=== PATIENT | female | born 2000 | race Two or more races ===

== ENCOUNTER 2024-06-25 14:17 | Outpatient (AMB) | payer OTHER, SELFPAY ==
--- NOTE | 2024-06-25 14:26 | HO.NEPHOV_ITS ---
Vital Signs 06/25/24 14:29 Height 4 ft 11 in Weight 128 lb 2 oz BMI 25.9 BP 90/52 L Blood Pressure Location Rt brachial Position Sitting Pulse 81 Pulse Source Pulse Oximeter Pulse Oximetry (%) 99 Oxygen Delivery Method Room Air Intake Visit Reasons: Self Referral/ Kidney Cyst-LVM Territory Development Manager Required: No Accompanied by: Mother Allergies banana Allergy (Verified 06/25/24 14:29) Unknown celery Allergy (Verified 06/25/24 14:29) Unknown kiwi Allergy (Verified 06/25/24 14:29) Unknown latex Allergy (Verified 06/25/24 14:29) Unknown seafood Allergy (Verified 06/25/24 14:29) Unknown shellfish derived Allergy (Verified 06/25/24 14:29) Unknown wheat Allergy (Verified 06/25/24 14:29) Unknown HPI Comments Details: I had the pleasure of seeing Rj who is a 23 year old patient for renal cyst which was detected incidentally on a CT scan done in [facility] on 04/19/2023 when she presented with left quadrant pain. She has H/O learning disbility as well as vasovagal syndrome. She was seen in [facility] and had undergone CT scan as well as VEEG. She is off Keppra and has a follow up with [facility] Neurology. She is not known to have any electrolyte abnormalities. She has been having a lot of stressors at school and has some documented learning disability. She has no flank pain, H/O renal stone, dysuria, hematuria, hypertension, weight loss, night sweats or renal dysfunction. Last CT scan showed a 1.3X1.3X1.2 cm anechoic focus in the lower pole of right kidney with a single avascular thin internal septation (Bosniak 2 ). [facility] Medical History (Updated 06/25/24 @ 15:05 by Bernard Rangel MD) Nonepileptic episode IBS (irritable bowel syndrome) Chronic migraine without aura Family History (Updated 06/25/24 @ 14:28 by Jayla Swift MA) Mother Hypotension Father High cholesterol Paternal Grandmother Diabetes Maternal Grandmother Migraine Social History (Updated 06/25/24 @ 14:29 by Jayla Swift MA) Alcohol intake: never Patient Tobacco Use Status: Never used Tobacco Review of Systems Const All systems reviewed & are unremarkable except as noted in HPI and below Physical Exam Vital Signs: Last Vital Signs Pulse 81 06/25/24 14:29 BP 90/52 L 06/25/24 14:29 Pulse Ox 99 06/25/24 14:29 Oxygen Delivery Method Room Air 06/25/24 14:29 BMI result Body Mass Index 25.9 Const General: comfortable and no acute distress Orientation/consciousness: patient oriented x3 HEENT Head: Yes normocephalic Mouth: Normal oral and palatal mucosa present Eyes EOM: EOMs intact bilaterally Neck Neck: Yes supple Resp Auscultation: clear to auscultation bilaterally Cardio Jugular venous distension: no JVD Rate: regular rate GI Palpation (GI): Soft to palpation Auscultation: normal bowel sounds General: Yes no CVA tenderness Back/Spine/Pelvis Back: no CVA tenderness Skin General skin exam: no rashes or lesions noted Neuro General: patient oriented x3 and moves all extremities Extrem General: Yes no pedal edema Results Reviewed Nephrology Results: No Data to Display Assessment & Plan Assessment & Plan (1) Renal cyst: Code(s): N28.1 - Cyst of kidney, acquired Category: Medical Plan Renal cyst which was detected incidentally on a CT scan done in [facility] on 04/19/2023 when she presented with left quadrant pain. She is not known to have any electrolyte abnormalities. She has no flank pain, H/O renal stone, dysuria, hematuria, hypertension, weight loss, night sweats or renal dysfunction. Last CT scan showed a 1.3X1.3X1.2 cm anechoic focus in the lower pole of right kidney with a single avascular thin internal septation (Bosniak 2 ). Her BP is normal. She has no family H/O renal cysts, ESRD or renal transplantation. I discussed the findings with her and her mother. I encouraged her to have a follow up imaging with time which I shall arrange through my office after next visit in a year time. All questions answered Coding Level of Care Code New Pt Level 4 (25483) Diagnoses Renal cyst N28.1
[2024-06-25 14:29] VITALS: BP 90/52; PULSE 81; O2SAT 99; BMI 25.9
== END 2024-06-25 15:08 | disposition home or self-care (01) ==
LOC: HO.HKA 14:17
PROVIDERS: PCP Pediatrics; Visit Provider Internal Medicine Nephrology
DX: N28.1 Cyst of kidney, acquired (principal)
CPT/HCPCS: 99204

== ENCOUNTER → 2024-06-25 14:17 | Outpatient (BNVA) | payer OTHER, SELFPAY | PROVIDERS: PCP Pediatrics; Visit Provider Internal Medicine Nephrology ==

== ENCOUNTER 2024-12-16 11:37 | Outpatient (REF) | payer OTHER, SELFPAY ==
--- NOTE | ~2024-12-16 | US_ITS ---
EXAMINATION: ULTRASOUND RENAL, BILATERALLY. CLINICAL INFORMATION: Cyst of the kidney, acquired. Hematuria. COMPARISON: No priors. TECHNIQUE: Real-time ultrasound kidneys using grayscale and color Doppler technique. FINDINGS: Right kidney: 10 x 3 x 5 cm. Volume: 95 cc. Normal echotexture. Renal cortical thickness is normal. No hydronephrosis. There is a 1.8 cm probably septated anechoic lesion at the corticomedullary junction of the lower pole without flow on color Doppler interrogation. Left kidney: 12 x 6 x 5 cm. Volume: 190 cc. Normal echotexture. Renal cortical thickness is normal. No hydronephrosis. No solid or cystic lesion. US/US renal BI IMPRESSION: No hydronephrosis. 1.8 cm complex cyst, right kidney. Electronically signed by: Edmundo Connell MD 12/17/2024 11:38 AM EDT
--- OUTSIDE RECORDS SUMMARY | 2024-12-16 14:10 | XMS_ITS | Encounter Summary ---
Author Organization [facility] Address [address] [place] [address] Phone Care Team Providers Care Stemhole Borer Name Role Phone Unavailable Primary Care Provider Unavailabl e Encounter Details Date Type Department Care Team (Late st Contact Info) Description 04/12/2017 Conversion Encounter [facility] - [address] [id number] Social History Tobacco Use Types Packs/Day Years Used Date Smoking Tobacco: Never Comments:Never smoker Comments Unknown Sex and Gender Information Value Date Recorded Sex Assigned at Not on file Legal Sex Female 5:15 PM EDT Gender Identity Not on file Sexual Orientation Not on file documented as of this encounter Plan of Treatment Not on file documented as of this encounter Visit Diagnoses Not on filedocumented in this encounter
--- OUTSIDE RECORDS SUMMARY | 2024-12-16 14:10 | XMS_ITS | Encounter Summary ---
Author Organization [facility] Address [address] [place] [address] Phone Care Team Providers Care Designer Name Role Phone Unavailable Primary Care Provider Unavailabl e Encounter Details Date Type Department Care Team (Late st Contact Info) Description 11/14/2016 Documentation EM Family Medicine [facility] [place] [address] Family Medicine, Physician [address] [place] [phone] Social History Tobacco Use Types Packs/Day Years Used Date Smoking Tobacco: Never Assessed Comments Unknown Sex and Gender Information Value Date Recorded Sex Assigned at Not on file Legal Sex Female 5:15 PM EDT Gender Identity Not on file Sexual Orientation Not on file documented as of this encounter Plan of Treatment Not on file documented as of this encounter Visit Diagnoses Not on filedocumented in this encounter
--- OUTSIDE RECORDS SUMMARY | 2024-12-16 14:10 | XMS_ITS | Encounter Summary ---
Author Organization [facility] Address [address] [place] [address] Phone Care Team Providers Care Vacuum Tester Cans Name Role Phone Unavailable Primary Care Provider Unavailabl e Encounter Details Date Type Department Care Team (Late st Contact Info) Description 09/15/2011 Documentation EM Family Medicine Replaced by [facility] [place] [address] Family Medicine, Physician Replaced by [facility] [place], [place] [phone] Social History Tobacco Use Types Packs/Day Years [...]
--- OUTSIDE RECORDS SUMMARY | 2024-12-16 14:10 | XMS_ITS | Encounter Summary ---
Author Organization [facility] Address [address] [place] [address] Phone Care Team Providers Care Lead Former Name Role Phone Unavailable Primary Care Provider Unavailabl e Encounter Details Date Type Department Care Team (Late st Contact Info) Description 05/04/2010 Documentation [facility] Family Medicine [facility] [address] Family Medicine, Physician [facility] [place], [place] [phone] Social History Tobacco Use Types Packs/Day Years [...]
--- OUTSIDE RECORDS SUMMARY | 2024-12-16 14:10 | XMS_ITS | Encounter Summary ---
Author Organization [facility] Address [address] [place] [address] Phone Care Team Providers Care Level Glass Vial Filler Name Role Phone Unavailable Primary Care Provider Unavailabl e Encounter Details Date Type Department Care Team (Late st Contact Info) Description 03/20/2017 Documentation EM Family Medicine [facility] [place] [address] Family Medicine, Physician [facility] [place] [address] Social History Tobacco Use Types Packs/Day Years [...]
--- OUTSIDE RECORDS SUMMARY | 2024-12-16 14:10 | XMS_ITS | Encounter Summary ---
Author Organization [facility] Address [address] [place] [address] Phone Care Team Providers Care Android Platform Developer Name Role Phone Unavailable Primary Care Provider Unavailabl e Encounter Details Date Type Department Care Team (Late st Contact Info) Description 01/14/2014 Documentation EM Family Medicine [facility] [place] [address] Family Medicine, Physician [address] [place] [phone] Social History Tobacco Use Types Packs/Day Years [...]
--- OUTSIDE RECORDS SUMMARY | 2024-12-16 14:10 | XMS_ITS | Clinical Summary ---
Author Organization [facility] Address [address] [place] [phone] Phone Care Team Providers Care Sample Body Builder Name Role Phone Unavailable Primary Care Provider Unavailabl e Allergies Active Allergy Reactions Criticality Noted Date Comments Banana Celery Oil Environmental Cat dander, dog dander, mites Food kiwi Latex Milk Protein 06/08/2018 Shellfish-Derived Products 7 Spearmint Oil Wheat Medications No known medications Active Problems Problem Noted Date Diagnosed Date Need for case management follow-up 05/19/2020 Overview (05/19/2020): STD screening not done due to national shortage Anxiety disorder 01/26/2020 Food allergy 08/12/2018 Overview (02/19/2019): Followed by Dr. 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 Seen by Dr. English, Pedi Neuro, [facility] (2018) - MRI normal. Rec: Naproxen and Compazine as needed. 2019 - she found that salt and lemon 3 times will help abort the headache and the symptom of vision loss. Assessment & Plan (09/09/2017 9:30 PM EST): You have a long history of migraine SNYDER with and without aura. You have had a neg head MRI have been followed by Neuro at [facility]. We discussed your symptoms at length and you will continue to track what is going on and follow up with Dr Holloway in a few weeks. Handout given and discussed Resolved Problems Problem Noted Date Diagnosed Date Resolved Date Allergic rhinitis 08/12/2018 05/19/2020 Overview (08/12/2018): Followed by manager transportation planning, Dr. Anju Sexton 09/09/2017 12/18/2017 Immunizations Immunization Administration Dates Next Due DTaP 5 02/02/2006, 3,06/24/2002,04/01,01/29/2002 H1N1 09/20/2009,07/08/2009 HPV Vaccine 9 Valent 09/25/2018,05/22/2018,03/19 Hep A, ped/adol 07/12/2015,10/19/2014 Hep B, ped/adol 10/08/2002,06/24/2002,2001 Hib (PRP-T) 03/31/2003, 2,04/01/2002,01/29 IPV 02/02/2006, 3,04/01/2002,01/29 Influenza, injectable, quadrivalent 06/08/2016,1 09/11/2014 Influenza, injectable, quadr ivalent, preservative free 05/19/2020,05/28/2019,05/22/2018,07/03 Influenza, injectable, trivalent 09/20/2009 Influenza, intranasal, quadrivalent 06/27/2014,1 09/17/2012 Influenza, intranasal, trivalent 07/16/2012,05/27 MMR 02/02/2006,12/24/2002 Meningococcal B Trumenba 05/19/2020 Meningococcal Conj (Menactra) MCV4P 03/19/2018,0 10/19/2014 Pneumococcal Conjugate 03/31/2003,2001,04/01/2002,01/29 Tdap 07/18/2013 Varicella 02/05/2008,12/24/2002 Family History Medical History Relation Name Comments Anxiety disorder Mother Kacy Asthma Mother Kacy Migraines Mother Kacy Diabetes Other Family hx Heart disease (Premature) Other Family hx Obesity Other Family hx Seizures Other Family hx Heart disease (Premature) Paternal Grandfather Stroke Paternal Grandfather Asthma Sister Alayzaris Relation Name Status Comments Father Danilo Alive Mother Kacy Alive Other Family hx Alive Paternal Grandfather Alive Sister Alayzaris Alive Social History Tobacco Use Types Packs/Day Years Used Date Smoking Tobacco: Never Smokeless Tobacco: Never Tobacco Cessation:Counseling Given: Yes Comments:Never smoker Alcohol Use Standard Drinks/Week Comments No 0 (1 standard drink = 0.6 oz pur e alcohol) Hunger/Food Answer Date Recorded No 05/22/2020 Stable Housing Answer Date Recorded No 05/22/2020 Transportation Concerns Answer Date Rec orded No 05/22/2020 Hazards in Home Answer Date Recorded No 07/09/2020 Financing Utilities Answer Date Recorde d No 07/09/2020 Safety at Home Answer Date Recorded No 07/09/2020 Outside Support Answer Date Recorded No 07/09/2020 Understanding Health Concerns Answer Da te Recorded No 07/09/2020 Financing Health Concerns Answer Date R ecorded No 07/09/2020 Missing School or Work Answer Date Emiliano rded No 07/09/2020 Comments No Sex and Gender Information Value Date Recorded Sex Assigned at Not on file Legal Sex Female 5:15 PM EDT Gender Identity Not on file Sexual Orientation Not on file Last Filed Vital Signs Vital Sign Reading Time Taken Comments Blood Pressure 117/79 05/19/2020 10:07 AM EDT Pulse 80 05/19/2020 10:07 AM EDT Temperature 36.2 ??C (97.1 ??F) 05/19/2020 10:07 AM E DT Respiratory Rate - - Oxygen Saturation 97% 06/19/2015 12:00 AM EDT Inhaled Oxygen Concentration - - Weight 54.9 kg (121 lb) 05/19/2020 10:07 AM EDT Height 153 cm (5' 0.25 ) 05/19/2020 10:07 AM EDT Body Mass Index 23.44 05/19/2020 10:07 AM EDT Plan of Treatment Health Maintenance Due Date Last Done Comments Men B Vaccine (2 of 2 - Trum enba SCDM 2-dose series) 11/16/2020 05/19/2020 DTaP,Tdap,and Td Vaccines (7 - Td or Tdap) 07/18/2023 07/18/2013, 02/02/2006, 08/24/2003, Additional history exists Influenza Vaccines (#1) 2024 05/19/20 20, 05/28/2019, 05/22/2018, Additional history exists COVID-19 Vaccine (2023-2 5 season) 2024 Hepatitis B Vaccines Completed 10/08/2002, 06/24/2002, 2001 HIB Vaccines Completed 03/31/2003, 05/28, 04/01/2002, Additional history exists Pneumococcal Vaccine Completed 03/31/2003, 06/24/2002, 04/01/2002, Additional history exists IPV Vaccines Completed 02/02/2006, 09/27, 04/01/2002, Additional history exists MMR Vaccines Completed 02/02/2006, 12/24/2002 Varicella Vaccines Completed 02/05/2008, 12/24/2002 Hepatitis A Vaccines Completed 07/12/2015, 10/19/19 15 Meningococcal Vaccine Completed 03/19/2018, 015 HPV Vaccines Completed 09/25/2018, 04/28, 03/19/2018 Procedures * Due to [place] law, this organization might not be sharing sensitive test results. Procedure Name Priority Date/Time Associated Diagnosis Comments CHLAMYDIA AND GONORRHEA, AMPLIFIED Routine 05/28/2019 8:59 AM EDT Screening examination for bacterial and spirochetal disease from Last 3 Months or Most Recently Relevant to Health Maintenance Results * Due to [place] law, this organization might not be sharing sensitive test results. * Chlamydia and Gonorrhoea, Amplified (05/28/2019 8:59 AM EDT) Chlamydia Trachomatis, DNA Probe NEGATIVE (NEG) [facility] Comment: No Chlamydia Trachomatis RNA detected in this patient's sample ? (REFERENCE RANGE/NORMAL VALUE: NOT DETECTED) ? Note: This test uses head animal keeper- mediated amplification method to detect rRNA from C. Trachomatis URINE GC AMP PROBE NEGATIVE (NEG) [facility] Comment: No Neisseria Gonorrhoeae RNA detected in this patient's sample ? (REFERENCE RANGE/NORMAL VALUE: NOT DETECTED) ? NOTE: This test uses head animal keeper-mediated amplification method to detect rRNA from N.Gonorrhoeae. A negative result does not preclude infection. In the case of a negative urine result, testing of an endocervical(female) or urethral (male) specimen is recommended if there is high clinical suspicion of infection. Due to very high sensitivity of Nucleic Acid Amplification Test, false positive results may occur. Therefore, specimen handling is extremely important. In patients in whom the disease is unlikely, additional sample for testing should be considered after an initial positive result. The performance characteristics of this test have not been evaluated in children. The Aptima Combo2 assay is not intended for the evaluation of suspected sexual abuse or for other medico-legal indications. The ordering provider should assess if the patient had consensual sex without risk of sexual abuse. Consult the [facility] if needed. Contact phone number . Therapeutic failure or success cannot be determined with the Aptima Combo2 assay since nucleic acid may persist following appropriate antimicrobial therapy. The Centers for Disease Control and Prevention (CDC) recommends confirmatory retesting using culture or a different nucleic acid amplification test when positive results occur, if indicated. Testing performed or reported by [facility], a Service of [facility], [facility] [place] [address] Urine 05/28/2019 8:59 AM EDT 05/28/2019 4:51 PM EDT us Scarlet Holloway MD LAB MICROBIOLOGY - GENERAL ORDERABLES Final Result [facility] from Last 3 Months or Most Recently Relevant to Health Maintenance
--- OUTSIDE RECORDS SUMMARY | 2024-12-16 14:10 | XMS_ITS | Encounter Summary ---
Author Organization [facility] Address [address] [place] [address] Phone Care Team Providers Care Analyst Microbiology Lab Name Role Phone Unavailable Primary Care Provider Unavailabl e Encounter Details Date Type Department Care Team (Late st Contact Info) Description 11/10/2009 Documentation [facility] Family Medicine [facility] [place] [address] Family Medicine, Physician [facility] [place], [place] [phone] Social History Tobacco Use Types Packs/Day Years [...]
--- OUTSIDE RECORDS SUMMARY | 2024-12-16 14:10 | XMS_ITS | Encounter Summary ---
Author Organization [facility] Address [address] [place] [address] Phone Care Team Providers Care Market Reporter Name Role Phone Unavailable Primary Care Provider Unavailabl e Encounter Details Date Type Department Care Team (Late st Contact Info) Description 10/31/2012 Documentation EM Family Medicine [place] [address] Family Medicine, Physician [facility] [place], [place] [phone] Social History Tobacco Use Types Packs/Day Years [...]
--- OUTSIDE RECORDS SUMMARY | 2024-12-16 14:10 | XMS_ITS | Encounter Summary ---
Author Organization [facility] Address [address] [place] [address] Phone Care Team Providers Care Research Geneticist Name Role Phone Unavailable Primary Care Provider Unavailabl e Encounter Details Date Type Department Care Team (Late st Contact Info) Description 09/18/2016 Documentation EM Family Medicine [facility] [place] [address] Family Medicine, Physician [address] [place] [phone] Social History Tobacco Use Types Packs/Day Years [...]
--- OUTSIDE RECORDS SUMMARY | 2024-12-16 14:10 | XMS_ITS | Encounter Summary ---
Author Organization [facility] Address [address] [place] [address] Phone Care Team Providers Care Fibrous Plasterer Name Role Phone Unavailable Primary Care Provider Unavailabl e Encounter Details Date Type Department Care Team (Late st Contact Info) Description 11/10/2016 Documentation EM Family Medicine [place] [address] Family Medicine, Physician [address] [place] [phone] Social History Tobacco Use Types Packs/Day Years [...]
--- OUTSIDE RECORDS SUMMARY | 2024-12-16 14:10 | XMS_ITS | Encounter Summary ---
Author Organization [facility] Address [address] [place] [address] Phone Care Team Providers Care Trial Court Justice Name Role Phone Unavailable Primary Care Provider Unavailabl e Encounter Details Date Type Department Care Team (Late st Contact Info) Description 06/21/2015 Documentation EM Family Medicine [facility] [place] [address] Family Medicine, Physician [address] [place] [phone] Social History Tobacco Use Types Packs/Day Years [...]
--- OUTSIDE RECORDS SUMMARY | 2024-12-16 14:10 | XMS_ITS | Encounter Summary ---
Author Organization [facility] Address [address] [place] [address] Phone Care Team Providers Care Clinical Data Management Director Name Role Phone Unavailable Primary Care Provider Unavailabl e Encounter Details Date Type Department Care Team (Late st Contact Info) Description 03/13/2017 Documentation EM Family Medicine [facility] [place] [address] Family Medicine, Physician [facility] [place] [address] Social History Tobacco Use Types Packs/Day Years [...]
--- OUTSIDE RECORDS SUMMARY | 2024-12-16 14:10 | XMS_ITS | Encounter Summary ---
Author Organization [facility] Address [address] [place] [address] Phone Care Team Providers Care Chiropractic Care Name Role Phone Unavailable Primary Care Provider Unavailabl e Encounter Details Date Type Department Care Team (Late st Contact Info) Description 05/02/2011 Documentation [facility] Family [facility] [place] [address] Family Medicine, Physician [facility] [place], [place] [phone] Social History Tobacco Use Types Packs/Day Years [...]
== END 2024-12-16 11:38 | disposition home or self-care (01) ==
LOC: HO.HMGCX 11:37
PROVIDERS: PCP Internal Medicine; Visit Provider Internal Medicine Nephrology
DX: N28.1 Cyst of kidney, acquired (principal); R31.9 Hematuria, unspecified
CPT/HCPCS: 76775

== ENCOUNTER → 2024-12-16 11:50 | Outpatient (BNV) | payer OTHER, SELFPAY | PROVIDERS: PCP Internal Medicine; Visit Provider Radiology Diagnostic Radiology | DX: N28.1 Cyst of kidney, acquired (principal) | CPT/HCPCS: 76775 ==

== ENCOUNTER 2025-03-26 14:32 | Outpatient (AMB) | payer OTHER, SELFPAY ==
--- OUTSIDE RECORDS SUMMARY | 2025-03-26 14:40 | XMS_ITS | Encounter Summary ---
Author Organization [facility] Address [address] [place] [address] Phone Care Team Providers Care Director Of Music Therapy Name Role Phone Unavailable Primary Care Provider Unavailabl e Encounter Details Date Type Department Care Team (Late st Contact Info) Description 11/10/2009 Documentation [facility] Family [facility] [place] [address] Family Medicine, Physician [facility] [place] [phone] Social History Tobacco Use Types Packs/Day Years [...]
--- NOTE | 2025-03-26 14:42 | HO.NEPHOV_ITS ---
Vital Signs 03/26/25 14:48 Height 4 ft 11 in Weight 132 lb 2 oz BMI 26.7 BP 110/70 Blood Pressure Location Lt brachial Position Sitting Pulse 69 Pulse Source Pulse Oximeter Pulse Oximetry (%) 97 Oxygen Delivery Method Room Air Intake Visit Reasons: 8mon follow up-[facility] Hospice Chaplain Required: No Accompanied by: Father Allergies banana Allergy (Verified 03/26/25 14:48) Unknown celery Allergy (Verified 03/26/25 14:48) Unknown kiwi Allergy (Verified 03/26/25 14:48) Unknown latex Allergy (Verified 03/26/25 14:48) Unknown seafood Allergy (Verified 03/26/25 14:48) Unknown shellfish derived Allergy (Verified 03/26/25 14:48) Unknown wheat Allergy (Verified 03/26/25 14:48) Unknown HPI Comments Details: I had the pleasure of seeing Rj who is a 23 year old patient for renal cyst which was detected incidentally on a CT scan done in [facility] [facility] on 04/19/2023 when she presented with left quadrant pain. She has H/O learning disbility as well as vasovagal syndrome. She was seen in [facility] [place] and had undergone CT scan as well as VEEG. She is off Keppra and has a follow up with [facility] [place] Neurology. She is not known to have any electrolyte abnormalities. She has no flank pain, H/O renal stone, dysuria,hypertension, weight loss, night sweats or renal dysfunction. Previous CT scan showed a 1.3X1.3X1.2 cm anechoic focus in the lower pole of right kidney with a single avascular thin internal septation (Bosniak 2 ). Recent USS showed 1.8 cm complex cyst, right kidney. She has been having intermittent hematuria. She has no hearing deficits [facility] Medical History (Updated 03/26/25 @ 14:48 by Bernard Rangel MD) Nonepileptic episode IBS (irritable bowel syndrome) Chronic migraine without aura Family History (Updated 06/25/24 @ 14:28 by Jayla Swift MA) Mother Hypotension Father High cholesterol Paternal Grandmother Diabetes Maternal Grandmother Migraine Social History (Updated 06/25/24 @ 14:29 by Jayla Swift MA) Alcohol intake: never Patient Tobacco Use Status: Never used Tobacco Review of Systems Const All systems reviewed & are unremarkable except as noted in HPI and below Physical Exam Const General: comfortable and no acute distress Orientation/consciousness: patient oriented x3 HEENT Head: Yes normocephalic Mouth: Normal oral and palatal mucosa present Eyes EOM: EOMs intact bilaterally Neck Neck: Yes supple Resp Auscultation: clear to auscultation bilaterally Cardio Jugular venous distension: no JVD Rate: regular rate GI Palpation (GI): Soft to palpation Auscultation: normal bowel sounds General: Yes no CVA tenderness Back/Spine/Pelvis Back: no CVA tenderness Skin General skin exam: no rashes or lesions noted Neuro General: patient oriented x3 and moves all extremities Extrem General: Yes no pedal edema Results Reviewed Nephrology Results: Renal US 12/16/24 Assessment & Plan Assessment & Plan (1) Renal cyst: Code(s): N28.1 - Cyst of kidney, acquired Category: Medical (2) Hematuria: Code(s): R31.9 - Hematuria, unspecified Category: Medical Qualifiers: Hematuria type: asymptomatic microscopic Qualified Code(s): R31.21 - Asymptomatic microscopic hematuria Plan Renal cyst which was detected incidentally on a CT scan done in [facility] [place] on 04/19/2023 when she presented with left quadrant pain. She is not known to have any electrolyte abnormalities. She has no flank pain, H/O renal stone, dysuria, hypertension, weight loss, night sweats or renal dysfunction. Last CT scan showed a 1.3X1.3X1.2 cm anechoic focus in the lower pole of right kidney with a single avascular thin internal septation (Bosniak 2 ). Her BP is normal. She has no family H/O renal cysts, Alports, ESRD or renal transplantation. Last recent renal USS showed 1.8 cm complex cyst, right kidney. She still gets intermittent heamturia. I ordered urine cytology, urinalysis, urine culture and urine protein. I also ordered a CT scan of abdomen and pelvis with contrast. She will need cystoscopy/ Urology and Gynae review if all work up is negative and continues to have this issue. All questions answered Orders: Orders Urine Cytology Today N28.1 - Cyst of kidney, acquired, R31.21 - Asymptomatic microscopic hematuria Urine Culture Today N28.1 - Cyst of kidney, acquired, R31.21 - Asymptomatic microscopic hematuria UA and rflx microscopic Today N28.1 - Cyst of kidney, acquired, R31.21 - Asymptomatic microscopic hematuria Protein Creatinine Ratio, Ur Today N28.1 - Cyst of kidney, acquired, R31.21 - Asymptomatic microscopic hematuria CT abdomen pelvis w IV con Today N28.1 - Cyst of kidney, acquired, R31.21 - Asymptomatic microscopic hematuria Coding Level of Care Code Est Pt Level 4 (65187) Diagnoses Renal cyst N28.1 Asymptomatic microscopic hematuria R31.21 Hematuria type: asymptomatic microscopic
[2025-03-26 14:48] VITALS: BP 110/70; PULSE 69; O2SAT 97; BMI 26.7
== END 2025-03-26 15:32 | disposition home or self-care (01) ==
LOC: HO.HKAS 14:33
PROVIDERS: PCP Pediatrics; Visit Provider Internal Medicine Nephrology
DX: N28.1 Cyst of kidney, acquired (principal); R31.21 Asymptomatic microscopic hematuria
CPT/HCPCS: 99214

== ENCOUNTER 2025-04-20 13:27 | Outpatient (REF) | payer OTHER, SELFPAY ==
[2025-04-20 14:39] LABS: Appearance Urine Clear; Glucose Urine UA Negative (Negative); PH 5.5 (5.0-9.0); Specific Gravity - Urine 1.020 (1.005-1.025); UMIC TRIGGER UA YES
--- OUTSIDE RECORDS SUMMARY | 2025-04-20 14:47 | XMS_ITS | Encounter Summary ---
Author Organization [facility] Address [address] [place] [address] Phone Care Team Providers Care De Ionizer Operator Name Role Phone Unavailable Primary Care Provider Unavailabl e Encounter Details Date Type Department Care Team (Late st Contact Info) Description 10/31/2012 Documentation EM Family Medicine [place] [address] Family Medicine, Physician [facility] [place] [address] Social History Tobacco Use Types Packs/Day Years [...]
--- OUTSIDE RECORDS SUMMARY | 2025-04-20 14:47 | XMS_ITS | Encounter Summary ---
Author Organization [facility] Address [address] [place] [address] Phone Care Team Providers Care Hat Blocking Operator Name Role Phone Unavailable Primary Care Provider Unavailabl e Encounter Details Date Type Department Care Team (Late st Contact Info) Description 11/10/2016 Documentation EM Family Medicine [facility] [place] [address] Family Medicine, Physician [address] [place] [address] [phone] Social History Tobacco Use Types Packs/Day Years [...]
--- OUTSIDE RECORDS SUMMARY | 2025-04-20 14:47 | XMS_ITS | Encounter Summary ---
Author Organization [facility] Address [address] [place] [address] Phone Care Team Providers Care Machining Supervisor Name Role Phone Unavailable Primary Care Provider Unavailabl e Encounter Details Date Type Department Care Team (Late st Contact Info) Description 09/18/2016 Documentation EM Family Medicine [facility] [place] [address] Family Medicine, Physician [address] [place] [address] [phone] Social History Tobacco Use Types Packs/Day Years [...]
--- OUTSIDE RECORDS SUMMARY | 2025-04-20 14:47 | XMS_ITS | Encounter Summary ---
Author Organization [facility] Address [address] [place] [address] Phone Care Team Providers Care Shell Trim Tool Setter Name Role Phone Unavailable Primary Care Provider Unavailabl e Encounter Details Date Type Department Care Team (Late st Contact Info) Description 11/14/2016 Documentation EM Family Medicine [place] [address] Family Medicine, Physician [address] [place] [address] [phone] Social History Tobacco Use Types Packs/Day Years [...]
--- OUTSIDE RECORDS SUMMARY | 2025-04-20 14:47 | XMS_ITS | Encounter Summary ---
Author Organization [facility] Address [address] [place] [address] Phone Care Team Providers Care Edge Bander Hand Name Role Phone Unavailable Primary Care Provider Unavailabl e Encounter Details Date Type Department Care Team (Late st Contact Info) Description 11/10/2009 Documentation [facility] Family Medicine [facility] [place] [address] Family Medicine, Physician [facility] [place] [phone] Social History Tobacco Use Types Packs/Day Years [...]
--- OUTSIDE RECORDS SUMMARY | 2025-04-20 14:47 | XMS_ITS | Encounter Summary ---
Author Organization [facility] Address [address] [place] [address] Phone Care Team Providers Care Food Sanitarian Name Role Phone Unavailable Primary Care Provider Unavailabl e Encounter Details Date Type Department Care Team (Late st Contact Info) Description 06/21/2015 Documentation EM Family [place] [address] Family Medicine, Physician [address] [place] [phone] Social History Tobacco Use Types Packs/Day Years [...]
--- OUTSIDE RECORDS SUMMARY | 2025-04-20 14:47 | XMS_ITS | Encounter Summary ---
Author Organization [facility] Address [address] [place] [address] Phone Care Team Providers Care Site Specialist Name Role Phone Unavailable Primary Care Provider Unavailabl e Encounter Details Date Type Department Care Team (Late st Contact Info) Description 01/14/2014 Documentation EM Family Medicine [facility] [place] [address] Family Medicine, Physician [facility] [place], [place] [phone] Social History Tobacco Use Types Packs/Day Years [...]
--- OUTSIDE RECORDS SUMMARY | 2025-04-20 14:47 | XMS_ITS | Encounter Summary ---
Author Organization [facility] Address [address] [place] [address] Phone Care Team Providers Care College President Name Role Phone Unavailable Primary Care Provider Unavailabl e Encounter Details Date Type Department Care Team (Late st Contact Info) Description 09/15/2011 Documentation EM Family Medicine [facility] [place] [address] Family Medicine, Physician [facility] [place], [place] [phone] Social History Tobacco Use Types Packs/Day Years [...]
--- OUTSIDE RECORDS SUMMARY | 2025-04-20 14:48 | XMS_ITS | Encounter Summary ---
Author Organization [facility] Address [address] [place] [address] Phone Care Team Providers Care Printer Slotter Operator Name Role Phone Unavailable Primary Care Provider Unavailabl e Encounter Details Date Type Department Care Team (Late st Contact Info) Description 03/13/2017 Documentation EM Family [place] [address] Family Medicine, [place] [address] Social History Tobacco Use Types Packs/Day Years [...]
--- OUTSIDE RECORDS SUMMARY | 2025-04-20 14:48 | XMS_ITS | Encounter Summary ---
Author Organization [facility] Address [address] [place] [address] Phone Care Team Providers Care Senior Manufacturing Technician Name Role Phone Unavailable Primary Care Provider Unavailabl e Encounter Details Date Type Department Care Team (Late st Contact Info) Description 03/20/2017 Documentation EM Family Medicine [facility] [place] [address] Family Medicine, Physician [facility] [place] [address] Social History Tobacco Use Types Packs/Day Years [...]
--- OUTSIDE RECORDS SUMMARY | 2025-04-20 14:48 | XMS_ITS | Encounter Summary ---
Author Organization [facility] Address [address] [place] [address] Phone Care Team Providers Care Service Now Developer Name Role Phone Unavailable Primary Care Provider Unavailabl e Encounter Details Date Type Department Care Team (Late st Contact Info) Description 05/04/2010 Documentation [facility] Family Medicine [facility] [place] [address] Family Medicine, Physician [facility] [place], [place] [phone] Social History Tobacco Use Types Packs/Day Years [...]
--- OUTSIDE RECORDS SUMMARY | 2025-04-20 14:48 | XMS_ITS | Encounter Summary ---
Author Organization [facility] Address [address] [place] [address] Phone Care Team Providers Care Wicker Molded Candles Name Role Phone Unavailable Primary Care Provider Unavailabl e Encounter Details Date Type Department Care Team (Late st Contact Info) Description 05/02/2011 Documentation [facility] Family Medicine [place] [address] Family Medicine, Physician [facility] [place], [place] [phone] Social History Tobacco Use Types Packs/Day Years [...]
--- OUTSIDE RECORDS SUMMARY | 2025-04-20 14:48 | XMS_ITS | Encounter Summary ---
Author Organization [facility] Address [address] [place] [address] Phone Care Team Providers Care Tobacco Drier Operator Name Role Phone Unavailable Primary Care Provider Unavailabl e Encounter Details Date Type Department Care Team (Late st Contact Info) Description 04/12/2017 Conversion Encounter [facility] - [address] [address] Social History Tobacco Use Types Packs/Day Years [...]
--- OUTSIDE RECORDS SUMMARY | 2025-04-20 14:48 | XMS_ITS | Clinical Summary ---
Author Organization [facility] Address [address] [place] [phone] Phone Care Team Providers Care Corner Trimmer Operator Name Role Phone Unavailable Primary Care [...] vision. Seen by Dr. English, Pedi Neuro, [facility] (2018) - MRI normal. Rec: Naproxen and Compazine as needed. 2019 - she found that salt and lemon 3 times will help abort the headache and the symptom of vision loss. Assessment & Plan (09/09/2017 9:30 PM EST): You have a long history of migraine SNYDER with and without aura. You have had a neg head MRI have been followed by Neuro at [facility]. We discussed your symptoms at length and you will continue to track what is going on and follow up with Dr Holloway in a few weeks. Handout given and discussed Resolved Problems Problem Noted Date Diagnosed Date Resolved Date Allergic rhinitis 08/12/2018 05/19/2020 Overview (08/12/2018): Followed by senior research project manager, Dr. Anju Sexton 09/09/2017 12/18/2017 Immunizations Immunization [...] 80 05/19/2020 10:07 AM EDT Temperature 36.2 C (97.1 F) 05/19/2020 10:07 AM EDT Respiratory Rate - - Oxygen Saturation 97% [...] 07/18/2023 07/18/2013, 02/02/2006, 08/24/2003, Additional history exists COVID-19 Vaccine (1 2023-2 5 season) 2024 Influenza Vaccines (#1) 2025 05/19/20 20, 05/28/2019, 05/22/2018, Additional history exists Hepatitis B Vaccines Completed 10/08/2002, 06/24/2002, 2001 [...] 09/25/2018, 04/28, 03/19/2018 Procedures * Due to [place] law, this organization might not be sharing sensitive test results. Procedure Name Priority Date/Time Associated Diagnosis Comments CHLAMYDIA AND GONORRHEA, AMPLIFIED Routine 05/28/2019 8:59 AM EDT Screening examination for bacterial and spirochetal disease from Last 3 Months or Most Recently Relevant to Health Maintenance Results * Due to [place] law, this organization might not be sharing sensitive test results. * Chlamydia and Gonorrhoea, Amplified (05/28/2019 8:59 AM EDT) Chlamydia Trachomatis, DNA Probe NEGATIVE (NEG) [facility] Comment: No Chlamydia Trachomatis RNA detected in this patient's sample (REFERENCE RANGE/NORMAL VALUE: NOT DETECTED) Note: This test uses instructor robotics- mediated amplification method to detect rRNA from C. Trachomatis URINE GC AMP PROBE NEGATIVE (NEG) [facility] Comment: No Neisseria Gonorrhoeae RNA detected in this patient's sample (REFERENCE RANGE/NORMAL VALUE: NOT DETECTED) NOTE: This test uses instructor robotics-mediated amplification method to detect rRNA from N.Gonorrhoeae. [...] without risk of sexual abuse. Consult the [facility] if needed. Contact phone number . Therapeutic failure or success cannot be determined with the Aptima Combo2 assay since nucleic acid may persist following appropriate antimicrobial therapy. The Centers for Disease Control and Prevention (CDC) recommends confirmatory retesting using culture or a different nucleic acid amplification test when positive results occur, if indicated. Testing performed or reported by [facility], a Service of [facility], [address] [place] [address] Urine 05/28/2019 8:59 AM EDT 05/28/2019 4:51 PM EDT us Scarlet Holloway MD LAB MICROBIOLOGY - GENERAL ORDERABLES Final Result [facility] from Last 3 Months or Most Recently Relevant to Health Maintenance
[2025-04-20 14:58] LABS: Protein/Creatinine Ratio, Ur 0.06 (<0.2); Total Protein Urine Random 8 mg/dL (<12)
== END 2025-04-20 13:28 | disposition home or self-care (01) ==
LOC: HO.LAB 13:27
PROVIDERS: Visit Provider Internal Medicine Nephrology
DX: R31.21 Asymptomatic microscopic hematuria (principal); N28.1 Cyst of kidney, acquired
CPT/HCPCS: 81001; 82570; 84156; 87086; 88112

== ENCOUNTER 2025-04-21 09:30 | Outpatient (REF) | payer OTHER, SELFPAY ==
--- NOTE | ~2025-04-21 | CT_ITS ---
EXAMINATION: CT ABDOMEN AND PELVIS WITH CONTRAST CLINICAL INFORMATION: R31.21 - Asymptomatic microscopic hematuria, Intermittent hematuria DLP: 276 mGY*cm COMPARISON: Ultrasound on December 16, 2024 TECHNIQUE: Multidetector volumetric images were obtained from the superior aspect of the liver through the pubic symphysis following administration 85 mL of Omnipaque 350 intravenous contrast. Sagittal and coronal reformatted images were obtained on the technologist's workstation. Oral contrast: No This CT examination was performed using dose optimization techniques as appropriate, variously including the following: *Automated exposure control *Adjustment of mA and/or kV according to patient size (this includes techniques or standardized protocols for targeted exams where dose is matched to indication/reason for exam; i.e. extremities or head) *Use of iterative reconstruction technique FINDINGS: LUNG BASES: The visualized lung bases are unremarkable. LIVER, GALLBLADDER, AND BILIARY TREE: The liver is normal in size, shape, and attenuation. No focal hepatic lesion or biliary ductal dilatation is present. The gallbladder is unremarkable with no evidence of radiopaque gallstones, gallbladder wall thickening, or obvious pericholecystic inflammatory changes. PANCREAS: Unremarkable. SPLEEN: Unremarkable. ADRENAL GLANDS: Unremarkable. KIDNEYS AND URETERS: There is a 14 mm simple renal cyst in the mid to lower anterior right kidney Kidneys are otherwise within normal limits. There is no hydronephrosis or nephrolithiasis. BLADDER: Unremarkable. GASTROINTESTINAL TRACT: The small and large bowel are unremarkable. The appendix is not well demonstrated but probably within normal limits. ABDOMINAL WALL: No significant hernia is appreciated. LYMPH NODES: Normal. VASCULAR: Unremarkable. PELVIC VISCERA: There is a crenulated dominant follicle in left ovary. Uterus and right ovary are unremarkable. OSSEOUS STRUCTURES: Unremarkable. CT/CT abdomen pelvis w IV con IMPRESSION: Unremarkable CT abdomen and pelvis and unremarkable kidneys. Fleischner guidelines were followed. Electronically signed by: Wang Milner MD 04/21/2025 10:41 AM EDT
--- OUTSIDE RECORDS SUMMARY | 2025-04-21 10:08 | XMS_ITS | Encounter Summary ---
Author Organization [facility] Address [address] [place] [address] Phone Care Team Providers Care Sergeant Missile Crewman Name Role Phone Unavailable Primary Care Provider Unavailabl e Encounter Details Date Type Department Care Team (Late st Contact Info) Description 11/10/2016 Documentation EM Family Medicine [place] [address] Family Medicine, Physician [address] [place] [phone] Social History Tobacco Use Types Packs/Day Years [...]
--- OUTSIDE RECORDS SUMMARY | 2025-04-21 10:08 | XMS_ITS | Encounter Summary ---
Author Organization [facility] Address [address] [place] [address] Phone Care Team Providers Care Dedicated Regional Driver Name Role Phone Unavailable Primary Care Provider Unavailabl e Encounter Details Date Type Department Care Team (Late st Contact Info) Description 09/18/2016 Documentation EM Family Medicine [facility] [place] [address] Family Medicine, Physician [address] [place] [address] [phone] Social History Tobacco Use Types Packs/Day Years [...]
--- OUTSIDE RECORDS SUMMARY | 2025-04-21 10:08 | XMS_ITS | Encounter Summary ---
Author Organization [facility] Address [address] [place] [address] Phone Care Team Providers Care Traveling Representative Name Role Phone Unavailable Primary Care Provider Unavailabl e Encounter Details Date Type Department Care Team (Late st Contact Info) Description 11/14/2016 Documentation EM Family Medicine [facility] [place] [address] Family Medicine, Physician [address] [place] [address] [phone] Social History Tobacco Use Types Packs/Day Years [...]
--- OUTSIDE RECORDS SUMMARY | 2025-04-21 10:08 | XMS_ITS | Encounter Summary ---
Author Organization [facility] Address [address] [place] [address] Phone Care Team Providers Care Fiber Design Engineer Name Role Phone Unavailable Primary Care Provider Unavailabl e Encounter Details Date Type Department Care Team (Late st Contact Info) Description 01/14/2014 Documentation EM Family Medicine [facility] [place] [address] Family Medicine, Physician [address] [place] [address] [phone] Social History Tobacco Use Types Packs/Day Years [...]
--- OUTSIDE RECORDS SUMMARY | 2025-04-21 10:08 | XMS_ITS | Encounter Summary ---
Author Organization [facility] Address [address] [place] [address] Phone Care Team Providers Care Dietetic Tech Name Role Phone Unavailable Primary Care Provider Unavailabl e Encounter Details Date Type Department Care Team (Late st Contact Info) Description 11/10/2009 Documentation [facility] Family Medicine [facility] [place] [address] Family Medicine, Physician [facility] [place], [place] [phone] Social History Tobacco Use Types Packs/Day Years [...]
--- OUTSIDE RECORDS SUMMARY | 2025-04-21 10:08 | XMS_ITS | Encounter Summary ---
Author Organization [facility] Address [address] [place] [address] Phone Care Team Providers Care Cream Buyer Name Role Phone Unavailable Primary Care Provider Unavailabl e Encounter Details Date Type Department Care Team (Late st Contact Info) Description 10/31/2012 Documentation EM Family Medicine [facility] [place] [address] Family Medicine, Physician [facility] [place], [place] 162141 Social History Tobacco Use Types Packs/Day Years [...]
--- OUTSIDE RECORDS SUMMARY | 2025-04-21 10:08 | XMS_ITS | Encounter Summary ---
Author Organization [facility] Address [address] [place] [address] Phone Care Team Providers Care Surveying Crew Stake Runner Name Role Phone Unavailable Primary Care Provider Unavailabl e Encounter Details Date Type Department Care Team (Late st Contact Info) Description 06/21/2015 Documentation EM Family Medicine [facility] [place] [address] Family Medicine, Physician [address] [place] [address] [phone] Social History Tobacco Use Types Packs/Day Years [...]
--- OUTSIDE RECORDS SUMMARY | 2025-04-21 10:08 | XMS_ITS | Encounter Summary ---
Author Organization [facility] Address [address] [place] [address] Phone Care Team Providers Care Hand Heel Seat Fitter Name Role Phone Unavailable Primary Care Provider Unavailabl e Encounter Details Date Type Department Care Team (Late st Contact Info) Description 09/15/2011 Documentation EM Family [place] [address] Family Medicine, Physician [facility] [place] [address]101 Social History Tobacco Use Types Packs/Day Years [...]
--- OUTSIDE RECORDS SUMMARY | 2025-04-21 10:09 | XMS_ITS | Clinical Summary ---
Author Organization [facility] Address [address] [place] [id number] Phone Care Team Providers Care Sanitation Truck Driver Name Role Phone Unavailable Primary Care [...] vision. Seen by Dr. English, Pedi Neuro, [facility] (2018) - MRI normal. Rec: Naproxen [...] MRI have been followed by Neuro at [facility]. We discussed your symptoms at length and you will continue to track what is going on and follow up with Dr Holloway in a few weeks. Handout given and discussed Resolved Problems Problem Noted Date Diagnosed Date Resolved Date Allergic rhinitis 08/12/2018 05/19/2020 Overview (08/12/2018): Followed by elementary assistant teacher, Dr. Anju Sexton 09/09/2017 12/18/2017 Immunizations Immunization [...] Mother Kacy Asthma Mother Kacy Migraines Mother aKcy Diabetes Other Family hx Heart disease (Premature) [...] 09/25/2018, 04/28, 03/19/2018 Procedures * Due to [place] [employer] law, this organization might not be sharing sensitive test results. Procedure Name Priority Date/Time Associated Diagnosis Comments CHLAMYDIA AND GONORRHEA, AMPLIFIED Routine 05/28/2019 8:59 AM EDT Screening examination for bacterial and spirochetal disease from Last 3 Months or Most Recently Relevant to Health Maintenance Results * Due to [place] [employer] law, this organization might not be sharing sensitive test results. * Chlamydia and Gonorrhoea, Amplified (05/28/2019 8:59 AM EDT) Chlamydia Trachomatis, DNA Probe NEGATIVE (NEG) [facility] Comment: No Chlamydia Trachomatis RNA detected in this patient's sample (REFERENCE RANGE/NORMAL VALUE: NOT DETECTED) Note: This test uses honey grader and blender- mediated amplification method to detect rRNA from C. Trachomatis URINE GC AMP PROBE NEGATIVE (NEG) [facility] Comment: No Neisseria Gonorrhoeae RNA detected in this patient's sample (REFERENCE RANGE/NORMAL VALUE: NOT DETECTED) NOTE: This test uses honey grader and blender-mediated amplification method to detect rRNA from N.Gonorrhoeae. [...] without risk of sexual abuse. Consult the [facility] if needed. Contact phone number . Therapeutic failure or success cannot be determined with the Aptima Combo2 assay since nucleic acid may persist following appropriate antimicrobial therapy. The Centers for Disease Control and Prevention (CDC) recommends confirmatory retesting using culture or a different nucleic acid amplification test when positive results occur, if indicated. Testing performed or reported by [facility], a Service of [facility], [address] [place] [address] Urine 05/28/2019 8:59 AM EDT 05/28/2019 4:51 PM EDT us Scarlet Holloway MD LAB MICROBIOLOGY - GENERAL ORDERABLES Final Result [facility] from Last 3 Months or Most Recently Relevant to Health Maintenance
--- OUTSIDE RECORDS SUMMARY | 2025-04-21 10:09 | XMS_ITS | Encounter Summary ---
Author Organization [facility] Address [address] [place] [id number] Phone Care Team Providers Care Scientific Process Operator Name Role Phone Unavailable Primary Care Provider Unavailabl e Encounter Details Date Type Department Care Team (Late st Contact Info) Description 04/12/2017 Conversion Encounter [facility] - [address] [id number] Social History Tobacco Use Types Packs/Day Years [...]
--- OUTSIDE RECORDS SUMMARY | 2025-04-21 10:09 | XMS_ITS | Encounter Summary ---
Author Organization [facility] Address [address] [place] [address] Phone Care Team Providers Care Registered Nurse Maternal Child Name Role Phone Unavailable Primary Care Provider Unavailabl e Encounter Details Date Type Department Care Team (Late st Contact Info) Description 05/02/2011 Documentation [facility] [place] [address] Family Medicine, Physician [facility] [place], [place] [id number] Social History Tobacco Use Types Packs/Day Years [...]
--- OUTSIDE RECORDS SUMMARY | 2025-04-21 10:09 | XMS_ITS | Encounter Summary ---
Author Organization [facility] Address [address] [place] [address] Phone Care Team Providers Care Soil Conservation Technician Name Role Phone Unavailable Primary Care Provider Unavailabl e Encounter Details Date Type Department Care Team (Late st Contact Info) Description 05/04/2010 Documentation [facility] [place] [address] Family Medicine, Physician [facility] [place], [place] [id number] Social History Tobacco Use Types Packs/Day Years [...]
--- OUTSIDE RECORDS SUMMARY | 2025-04-21 10:09 | XMS_ITS | Encounter Summary ---
Author Organization [facility] Address [address] [place] [address] Phone Care Team Providers Care Channel Program Manager Name Role Phone Unavailable Primary Care Provider Unavailabl e Encounter Details Date Type Department Care Team (Late st Contact Info) Description 03/13/2017 Documentation [facility] [place] [address] Family Medicine, Physician [facility] [place] [place] [address] Social History Tobacco Use Types Packs/Day Years [...]
--- OUTSIDE RECORDS SUMMARY | 2025-04-21 10:09 | XMS_ITS | Encounter Summary ---
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
[2025-04-21] MEDS: iohexoL 350 MG/ML 100 ML INFUS..BTL IV (10:26)
== END 2025-04-21 09:31 | disposition home or self-care (01) ==
LOC: HO.CT 09:30
PROVIDERS: PCP Internal Medicine; Visit Provider Internal Medicine Nephrology
DX: R31.21 Asymptomatic microscopic hematuria (principal); N28.1 Cyst of kidney, acquired
CPT/HCPCS: 74177; Q9967

== ENCOUNTER → 2025-04-21 09:34 | Outpatient (BNV) | payer OTHER, SELFPAY | PROVIDERS: PCP Internal Medicine; Visit Provider Radiology Diagnostic Radiology | DX: R31.21 Asymptomatic microscopic hematuria (principal) | CPT/HCPCS: 74177 ==